=== PATIENT | female | born 1980 | race Caucasian/White ===

== ENCOUNTER 2025-04-26 04:51 | Emergency (ER) | payer MEDICAID, SELFPAY ==
[2025-04-26 04:54] VITALS: BMI 40.3
[2025-04-26 04:59] VITALS: BP 138/91; PULSE 86; RESP 18; TEMP 37.1; O2SAT 98
--- NOTE | 2025-04-26 05:19 | PD.EDRME ---
Rapid Medical Screening Exam RME Arrival date/time: 04/26/25 04:51 Chief Complaint: Urogenital-Female Time Seen by Provider: 04/26/25 05:11 Vital signs: Vital Signs Temperature 98.7 F 04/26/25 04:59 Pulse Rate 86 04/26/25 04:59 Respiratory Rate 18 04/26/25 04:59 Blood Pressure 138/91 H 04/26/25 04:59 Pulse Oximetry (%) 98 04/26/25 04:59 Oxygen Delivery Method Room Air 04/26/25 04:59 Vital signs reviewed by provider: Yes RME Narrative: 44-year-old female presents to the ED with a complaint of dysuria and hematuria that began at 10 PM tonight. She has had some chills but no fever. She has pain that radiates up into her abdomen and bilateral flanks. She states she was passing clots through her urethra. I have greeted and performed a focused initial assessment of this patient. A comprehensive ED assessment and evaluation of the patient, analysis of all test results, and completion of the medical decision making process will be conducted by additional ED providers.
[2025-04-26 05:34] LABS: Collection Type, Urine Clean Catch
[2025-04-26 05:51] LABS: Bacteria,Urine Rare; Bilirubin,Urine Negative (Negative); Blood,Urine 3+ (Negative); Clarity,Urine Turbid (Clear/Hazy); Color,Urine Colorless (Lt Yel-Yel); Glucose, Urine Negative (Negative); Ketones,Urine Negative (Negative); Leukocyte Esterase,Urine Positive (Negative); Nitrite,Urine Negative (Negative); PH,Urine 6.5 (5.0-7.0); Protein,Urine Negative (Neg - Trace); RBC,Urine 6 /hpf (0-3); Specific Gravity,Urine 1.006 (1.001-1.035); Squamous Epithelial Cell,Urine 1 /hpf (0-5); Urobilinogen,Urine Negative mg/dL (0.0-1.0); WBC,Urine 136 /hpf (0-5)
--- NOTE | 2025-04-26 06:21 | PD.EDFMALE ---
ED Female Urogenital RME/HPI General Chief complaint: Urogenital-Female Stated complaint: URINATING BLOOD Time Seen by Provider: 04/26/25 05:11 Arrival date/time: 04/26/25 04:51 RME / HPI RME / HPI Narrative: 44-year-old female presents to the ED with a complaint of dysuria and hematuria that began at 10 PM tonight. She has had some chills but no fever. She has pain that radiates up into her abdomen and bilateral flanks. She states she was passing clots through her urethra. Related Data Previous Rx's ?Medication ?Instructions ?Recorded phenazopyridine 200 mg tablet 200 mg PO TID 6 doses #6 tabs 04/26/25 (Pyridium) sulfamethoxazole 800 1 tab PO Q12H #14 tabs 04/26/25 mg-trimethoprim 160 mg tablet (Bactrim DS) Allergies Allergy/AdvReac Type Severity Reaction Status Date / Time promethazine (From Phenergan) Allergy Verified 04/26/25 04:53 Review of Systems Review of Systems Systems Reviewed: All systems reviewed, normal except as documented Past Medical History Social History SMOKING STATUS: Current some day smoker ED Exam Narrative Physical exam: Alert and oriented 44 year old female, afebrile, no acute distress, vital signs 138/91, pulse 86, respirations 18 nonlabored, temperature 98.7, O2 sat 98% on room air. Lungs are clear, regular rate and rhythm without murmurs, no CVA tenderness, mild generalized abdominal tenderness, no rebound or guarding. Course Course Course Narrative: Urinalysis reveals turbid colorless urine with a specific gravity of 1.006 with negative protein, negative glucose, negative ketones, 3+ blood, negative nitrites, positive leukocyte esterase, 6 RBCs, 136 WBCs and rare bacteria. Quality Measures none Orders Category Date Time Status Urinalysis Stat Lab 04/26/25 05:26 Completed Urine Culture Stat Lab 04/26/25 05:26 Completed Vital Signs Vital signs: Vital Signs Temperature 98.7 F 04/26/25 04:59 Pulse Rate 86 04/26/25 04:59 Respiratory Rate 18 04/26/25 04:59 Blood Pressure 138/91 H 04/26/25 04:59 Pulse Oximetry (%) 98 04/26/25 04:59 Oxygen Delivery Method Room Air 04/26/25 04:59 Urogenital - Female MDM Narrative MDM Narrative:: 44-year-old female presents to the ED with a complaint of dysuria and hematuria that began at 10 PM tonight. She has had some chills but no fever. She has pain that radiates up into her abdomen and bilateral flanks. She states she was passing clots through her urethra. Alert and oriented 44 year old female, afebrile, no acute distress, vital signs 138/91, pulse 86, respirations 18 nonlabored, temperature 98.7, O2 sat 98% on room air. Lungs are clear, regular rate and rhythm without murmurs, no CVA tenderness, mild generalized abdominal tenderness, no rebound or guarding. Urinalysis reveals turbid colorless urine with a specific gravity of 1.006 with negative protein, negative glucose, negative ketones, 3+ blood, negative nitrites, positive leukocyte esterase, 6 RBCs, 136 WBCs 1 squamous epithelial cell, and rare bacteria. Patient data External records reviewed:: None Clinical information provided by:: patient Social determinants that could affect healthcare access:: none Patient has the following chronic illnesses:: N/A How is presenting disease/condition affected by chronic disease/condition?: no chronic disease Evaluation data The following diagnostics were reviewed and interpreted by me:: lab results Lab and/or radiology exams considered but not ordered:: N/A Interpretation Summary: Urinalysis reveals turbid colorless urine with a specific gravity of 1.006 with negative protein, negative glucose, negative ketones, 3+ blood, negative nitrites, positive leukocyte esterase, 6 RBCs, 136 WBCs 1 squamous epithelial cell, and rare bacteria. Medications / Prescriptions Medications or Prescriptions considered but not ordered:: N/A Medication administrations:: N/A Consultations Consultation(s) initiated? (list below): No Diagnosis Urogenital Female Differential Diagnosis: urinary tract infection, vaginitis, cystitis and dysmenorrhea Most likely diagnosis given after review of the tests above:: Urinary tract infection Admission Indicated Admission indicated?: not indicated Explain why admission is indicated or not indicated:: Patient is stable for discharge Admission Request Was there a request for admission?: No Admission Attestation Admission request attestation: N/A Disposition Plan Disposition Plan: Discharge Discharge Attestation Discharge Attestation: The patient and all family members were given an opportunity to ask questions and understood the discharge instructions. Discharge instructions specifically effects, indications for sooner follow up or return to the emergency department, and the expected course of current diagnosis. Patient condition: Stable Discharge Plan Plan Patient Disposition: HOME (Self Care) Discharge Disposition comment: Stable Prescriptions/Referrals Prescriptions/Med Rec: New sulfamethoxazole-trimethoprim [Bactrim DS] 800-160 mg tablet 1 tab PO Q12H Qty: 14 0RF phenazopyridine [Pyridium] 200 mg tablet 200 mg PO TID Qty: 6 0RF Problem List Clinical Impression: Urinary tract infection Patient/Caregiver Discharge Instructions Education Materials: ED CYSTITIS Female Adult Additional Instructions: Take the antibiotics as prescribed and complete the course even though you may be feeling better. Follow-up with your primary care physician in 24 to 48 hours. Return to the ED for any new or worsening symptoms. Print Language: Hungarian Stand Alone Forms: Winnie Award Info., Patient Portal Info Letter PA/CHIEF SCIENCE OFFICER Supervising Physician PA/CHIEF SCIENCE OFFICER Supervising Physician: Dr. Jesus
[2025-04-26 06:59] VITALS: RESP 16
== END 2025-04-26 07:01 | disposition home or self-care (01) ==
LOC: SERX 06:45
PROVIDERS: Physician Assistant; Emergency Provider Family Medicine
DX: N39.0 Urinary tract infection, site not specified (principal); R31.9 Hematuria, unspecified
CPT/HCPCS: 81001; 87077; 87086; 87186; 99283